=== PATIENT | female | born 1955 | race Caucasian/White ===

== ENCOUNTER 2017-12-16 08:28 | Day surgery (SDC) | payer OTHER ==
[2017-12-15 12:24] VITALS: BMI 41.1
[2017-12-16 08:47] LABS: #Basophils 0.1 thou/uL (0.0-0.2); #Eosinphils 0.4 thou/uL (0.0-0.7); #Monocytes 0.7 thou/uL (0.11-0.59); #Neutrophils 6.3 thou/uL (1.40-6.50); %Basophils 0.6 % (0.0-1.0); %Eosinophils 4.6 % (0.0-10.0); %Lymphocytes 20.8 % (21.0-51.0); %Monocytes 7.3 % (0.0-10.0); %Neutrophils 66.7 % (42.0-75.0); Hemoglobin 11.7 g/dL (12.0-16.0); Mean Corpuscular HGB CONC 32.7 g/dL (32.0-36.0); Mean Corpuscular Hemoglobin 30.3 pg (27.0-31.0); Mean Corpuscular Volume 92.6 fL (78.0-98.0); Mean Platelet Volume 6.9 fL (7.4-10.4); Platelet Count 290 thou/uL (130-400); RBC Distribution Width 13.6 % (11.5-14.5); Red Blood Cell (RBC) Count 3.87 mill/uL (4.20-5.40); White Blood Cell (WBC) Count 9.5 thou/uL (4.8-10.8)
[2017-12-16 08:54] LABS: PTT 39.9 SEC (22.9-36.1); Prothrombin Time 13.5 SEC (12.0-14.7)
[2017-12-16 10:05] VITALS: BP 155/79; TEMP 97.5
[2017-12-16] MEDS ORDERED: Sodium Bicarbonate 2.5 MEQ/5 ML VIAL ONE (10:09)
[2017-12-16] MEDS ORDERED: Midazolam HCl 2 mg/2 ml Vial ONE (10:09)
[2017-12-16] MEDS ORDERED: Fentanyl 100 MCG/2 ML VIAL ONE (10:10)
--- NOTE | 2017-12-16 12:03 | CT ---
CT OF LUMBAR SPINE PERFORMED WITHOUT CONTRAST ENHANCEMENT: Date: 12/16/17 HISTORY: Low back pain. COMPARISON: MRI study of 11/01/17. FINDINGS: Postoperative changes of the spine are noted. Bilateral pedicle screws are seen at L3, L4, and L5. Th ere is a severe scoliotic change to the spine seen convex to the left, centered more in the mid to up per thoracic spine region. There is marked degenerative disc narrowing at L5-S1. There is moderate di sc narrowing at L4-5 with vacuum disc phenomenon. At L3-4, there is marked disc narrowing with very i rregular sclerotic end plates. At L2-3, there is vacuum disc phenomenon and again irregular sclerotic end plates. At L1-2, there is disc narrowing and vacuum disc phenomenon. In comparing to the prior [facility] study, comparison is difficult but suggests that there may be some slight increased disc narrowing at the L3-4 level. Chronic diskitis changes could not be excluded at either L2-3 or L3-4. The severe scoliosis is centered at the L3 vertebral body level. No paravertebral mass is appreciated. No significant periaortic adenopathy. L1-2: Degenerative facet changes are seen. There is mild canal narrowing. L2-3: Canal shows mild to moderate degree of stenosis. There are degenerative facet changes present. L3-4: There is a mild degree of canal narrowing. There is right-sided foraminal stenosis. L4-5: Canal shows some borderline narrowing. Degenerative facet changes. Suggestion of some mild for aminal narrowing. L5-S1: Degenerative facet changes at this level asymmetrically involve the left facet, with some mil d left foraminal narrowing. IMPRESSION: Severe arthritic changes of the spine with postop changes and scoliosis. Findings are as noted above. POS: [facility]
--- NOTE | 2017-12-16 13:34 | CT ---
CT GUIDED BIOPSY/ASPIRATION L2-3 DISC SPACE: Date: 12/16/17 CONSCIOUS SEDATION: 1 mg Versed, IV. 50 mcg Fentanyl, IV. Approximately 30 minutes were spent with the patient for conscious sedation. HISTORY: Abnormal MRI. Inflammation of the L2-3 disc space. FINDINGS: After explaining the procedure and answering all questions, dedicated CT lumbar spine was performed a nd reported separately. Patient was placed on the CT table in the right lateral decubitus position fo r greatest comfort. Limited imaging was performed. Left posterolateral approach was planned. Sterile technique, buffered local anesthesia, conscious sedation, CT guidance, and a left posterolateral appr [facility] were used to carefully advance a 17 gauge trocar needle to the L2-3 disc space. The needle was e ngaged into the disc space as far as possible for access to the area of inflammation on recent MRI. A total of three passes were made with an 18 gauge biopsy device, acquiring a small amount of soft ti ssue and a small amount of bone. Vigorous aspirate was also obtained with a 17 gauge needle, yielding a small amount of disc-type material. Needle was removed. Postprocedure imaging shows no evidence of complication. The tissue was submitted to pathology for both microbiologic analysis and cytology. The patient tolerated the procedure well and was returned to the holding area in good condition for f urther monitoring. IMPRESSION: Technically successful CT guided biopsy/aspirate L2-3 disc space. Pathology is pending. POS: [facility]
== END 2017-12-16 13:10 | disposition home or self-care (01) ==
LOC: CT 08:28
PROVIDERS: ATTEND Orthopaedic Surgery
PROC: 0Q903ZX Drainage of Lumbar Vertebra, Percutaneous Approach, Diagnostic (ICD-10-PCS; principal; 2017-12-16)
PROC: 0QB03ZX Excision of Lumbar Vertebra, Percutaneous Approach, Diagnostic (ICD-10-PCS; principal; 2017-12-16)
DX: M54.5 Low back pain (principal); M41.9 Scoliosis, unspecified
CPT/HCPCS: 36415; 72131; 77012; 85025; 85610; 85730; 87070; 87205; 88173; 88307; J2250; J3010

== ENCOUNTER 2020-06-16 07:43 | Inpatient (IN) | payer MEDICARE, OTHER ==
[2020-06-16] MEDS ORDERED: Norepinephrine 8 MG/0.9% NS 250 ML ONE (07:46)
[2020-06-16] MEDS ORDERED: Cefepime 1 GM VIAL ONE (08:32)
[2020-06-16 08:38] LABS: Anion Gap 33 mmol/L (10-20); BUN (Urea Nitrogen) 60 mg/dL (9.8-20.1); Calc. Creatinine Clearance 0 mL/min (70-130); Carbon Dioxide 30 mmol/L (23-31); Potassium 4.1 mmol/L (3.5-5.1); Sodium 127 mmol/L (136-145)
[2020-06-16 08:45] LABS: Calcium 5.4 mg/dL (7.8-10.44); Chloride 68 mmol/L (98-107); Glucose 1097 mg/dL (80-115)
[2020-06-16] MEDS ORDERED: Calcium Gluc 4.6 MEQ/10 ML (100 MG/ML) ONE ×2 (08:52→11:28)
[2020-06-16] MEDS ORDERED: INSULIN REGULAR IN 0.9 % NACL 100 UNIT/100 ML BAG ONE (09:03)
[2020-06-16] MEDS ORDERED: NS 0.9% w/ 20 MEQ KCL 1,000 ML/1,000 ML BAG IV PRN ×4 (09:15→13:30)
[2020-06-16] MEDS ORDERED: Dextrose 5 %-0.45 % NaCl 1,000 ML IV PRN ×2 (09:15→13:30)
[2020-06-16] MEDS ORDERED: Dextrose 5% in Water 1,000 ML IV PRN ×2 (09:15→13:30)
[2020-06-16] MEDS ORDERED: Sodium Chloride 0.9% 1,000 ML IV PRN ×8 (09:15→13:30)
[2020-06-16] MEDS ORDERED: D5 1/2 NS w/20 mEq KCL 1,000 ML IV PRN ×2 (09:15→13:30)
[2020-06-16] MEDS ORDERED: HUMULIN R 100 UNITS in Sodium Chloride 0.9% 100 ML IVPB SCH ×2 (09:15→13:30)
[2020-06-16] MEDS ORDERED: ADD ELECTROLYTE REPLACEMENT SET TO PROFILE FS SCH ×2 (09:15→13:30)
[2020-06-16] MEDS ORDERED: Insulin Regular 300 UNITS/3 ML VIAL IVP SCH ×2 (09:15→13:30)
[2020-06-16] MEDS ORDERED: Dextrose 50% Abboject 50 ML SYRINGE SLOW IVP PRN ×2 (09:15→13:30)
[2020-06-16 09:18] LABS: SARS-CoV-2 NAA Rapid Test Not Detected (NotDetected)
[2020-06-16 09:31] LABS: HBSAB Concentration Less than 8.00 mIU/mL; Hep B Core Total Ab Non-Reactive (NonReactive); Hep B Core Total Index 0.03 S/CO (0-0.79); Hep B Surf AB Non-Reactive (NonReactive); Hep C IgG Ab Non-Reactive (NonReactive); Hep C Index 0.05 S/CO (0-0.79)
[2020-06-16 09:46] LABS: Actual Bicarbonate (HCO3a) 6.9 mEq/L (22-28); Analyzer IN Cardio ER; Base Excess (BEa) -23.3 mEq/L (-2.0 to +3.0); CO2 Tension 30.5 mmHg (35.0-45.0); Calcium, Ionized (arterial) 1.09 mmol/L (1.12-1.30); Carboxyhemoglobin (COHb) 0.3 gm% (0.0-3.0); Hemoglobin (Hb) 8.4 g/dL (12.0-16.0); O2 Tension (PaO2), arterial 75.1 mmHg (> 80.0); Potassium - ABG Lab 4.98 mmol/L (3.70-5.30)
[2020-06-16] MEDS ORDERED: Vancomycin 1 GM/200 ML BAG ONE (09:48)
[2020-06-16 09:57] LABS: Puncture Site RRA; pH, Arterial 6.97 (7.35-7.45)
[2020-06-16 09:58] LABS: ALV-art Gradient 36.505 mmHg (0-20)
[2020-06-16] MEDS ORDERED: Heparin 10,000 UNITS/ 10 ML VIAL ONE (10:01)
[2020-06-16 10:16] LABS: INR-International Normal Ratio 1.2; Prothrombin Time 15.1 sec (12.0-14.7)
[2020-06-16 10:55] LABS: Base Excess -24.6 mEq/L (-2.0 to +3.0); Calcium, Ionized (venous) 1.01 mmol/L (1.16-1.32); Chloride (VBG) 91 mmol/L (98-106); Hemoglobin (Hb) 8.3 g/dL (11.7-16.1); Potassium (VBG) 4.91 mmol/L (3.70-5.30); Sodium 129.1 mmol/L (133-146)
[2020-06-16 10:56] LABS: Actual Bicarbonate (HCO3v) 6 mEq/L (22-28); pH (venous) 6.92 (7.32-7.43)
[2020-06-16 11:06] LABS: Anion Gap 33 mmol/L (10-20); BUN (Urea Nitrogen) 77 mg/dL (9.8-20.1); Calc. Creatinine Clearance 0 mL/min (70-130); Calcium 7.1 mg/dL (7.8-10.44); Carbon Dioxide 9 mmol/L (23-31); Chloride 92 mmol/L (98-107); Glucose 166 mg/dL (80-115); Potassium 4.9 mmol/L (3.5-5.1); Sodium 129 mmol/L (136-145)
[2020-06-16] MEDS ORDERED: Sodium Bicarb 50 MEQ/50 ML Abboject 8.4% SYRINGE IVP SCH (11:15)
[2020-06-16] MEDS ORDERED: Sodium Bicarbonate 150 MEQ in Dextrose 5% in Water 1,000 ML IV SCH (11:15)
[2020-06-16 11:17] LABS: Hemoglobin A1c 5.5 % (4.0-6.0)
[2020-06-16] MEDS ORDERED: Sodium Bicarb 50 MEQ/50 ML Abboject 8.4% SYRINGE ONE ×3 (11:26→13:07)
[2020-06-16] MEDS ORDERED: Ketamine 50 MG/ML (10ML VIAL) ONE (11:28)
[2020-06-16] MEDS ORDERED: Rocuronium Bromide 10 MG/ML (10ML VIAL) ONE (11:28)
[2020-06-16 11:29] LABS: CK (CPK) 176 U/L (29-168); Magnesium 2.1 mg/dL (1.6-2.6)
[2020-06-16 11:38] LABS: Albumin 3.1 g/dL (3.4-4.8); Protein, Total 5.7 g/dL (5.8-8.1)
[2020-06-16 11:40] LABS: Alkaline Phosphatase 111 U/L (40-110); Bilirubin, Total 0.3 mg/dL (0.2-1.2)
[2020-06-16 11:43] LABS: AST (SGOT) 19 U/L (5-34); Bilirubin, Direct 0.2 mg/dL (0.1-0.3)
[2020-06-16 11:44] LABS: ALT (SGPT) 12 U/L (8-55)
[2020-06-16] MEDS ORDERED: Sodium Chloride 0.65% Nasal 44 ML BOT EA NARE PRN (11:44)
[2020-06-16] MEDS ORDERED: Cepastat Lozenges 1 LOZ PO PRN (11:44)
[2020-06-16] MEDS ORDERED: Acetaminophen 325 MG TAB PO PRN (11:44)
[2020-06-16] MEDS ORDERED: Senokot S 8.6-50 MG TAB PO PRN (11:44)
[2020-06-16] MEDS ORDERED: Ondansetron PF 4 MG/2 ML Vial IVP PRN (11:44)
[2020-06-16] MEDS ORDERED: Bisacodyl 10 MG SUPP PR PRN (11:44)
[2020-06-16] MEDS ORDERED: Norepinephrine 8 MG/0.9% NS 250 ML IVPB SCH (11:44)
[2020-06-16] MEDS ORDERED: Heparin 10,000 UNITS/ 10 ML VIAL SLOW IVP SCH ×2 (11:44→16:00)
[2020-06-16] MEDS ORDERED: Heparin 25,000 units/D5W 500 ML IVPB SCH (11:44)
[2020-06-16] MEDS ORDERED: Fentanyl CADD 100 ML IV SCH (11:45)
[2020-06-16 11:57] LABS: Phosphorus 9.2 mg/dL (2.3-4.7)
[2020-06-16] MEDS ORDERED: Heparin 25,000 units/D5W 500 ML ONE (12:11)
[2020-06-16] MEDS ORDERED: Aspirin 300 MG Suppository ONE (12:12)
[2020-06-16 12:23] LABS: Actual Bicarbonate (HCO3a) 9.4 mEq/L (22-28); Analyzer IN Cardio ER; Base Excess (BEa) -18.6 mEq/L (-2.0 to +3.0); CO2 Tension 30.1 mmHg (35.0-45.0); Carboxyhemoglobin (COHb) 0.3 gm% (0.0-3.0); O2 Tension (PaO2), arterial 72.1 mmHg (> 80.0); Potassium - ABG Lab 4.64 mmol/L (3.70-5.30)
[2020-06-16 12:26] LABS: Hemoglobin 8.2 g/dL (12.0-16.0); Platelet Count 456 thou/uL (130-400)
[2020-06-16] MEDS ORDERED: Lidocaine 1% (PF) 30 ML VIAL ONE (12:27)
[2020-06-16 12:42] LABS: Anion Gap 36 mmol/L (10-20); BUN (Urea Nitrogen) 79 mg/dL (9.8-20.1); Calc. Creatinine Clearance 0 mL/min (70-130); Carbon Dioxide 12 mmol/L (23-31); Chloride 90 mmol/L (98-107); Glucose 167 mg/dL (80-115); Potassium 4.8 mmol/L (3.5-5.1); Sodium 133 mmol/L (136-145)
[2020-06-16 12:47] LABS: ALV-art Gradient 603.275 mmHg (0-20); Puncture Site LRA; pH, Arterial 7.11 (7.35-7.45)
[2020-06-16 12:47] LABS: Troponin I 1.299 ng/mL (< 0.028)
[2020-06-16] MEDS ORDERED: EPINEPHrine 1 MG/10 ML Abboject SYRINGE ONE ×2 (13:07→17:21)
[2020-06-16 13:21] LABS: Actual Bicarbonate (HCO3a) 9.9 mEq/L (22-28); Base Excess (BEa) -18.9 mEq/L (-2.0 to +3.0); CO2 Tension 34.7 mmHg (35.0-45.0); Calcium, Ionized (arterial) 1.14 mmol/L (1.12-1.30); Carboxyhemoglobin (COHb) 0.4 gm% (0.0-3.0); Hemoglobin (Hb) 8.5 g/dL (12.0-16.0); O2 Tension (PaO2), arterial 142.3 mmHg (> 80.0); Potassium - ABG Lab 4.52 mmol/L (3.70-5.30)
[2020-06-16] MEDS ORDERED: Vancomycin 1 GM in Premix Bag 1 BAG IVPB SCH ×2 (13:30→13:45)
[2020-06-16] MEDS: EPINEPHrine 4 MG in Dextrose 5% in Water 250 ML IV SCH ×2 (13:40→17:03)
[2020-06-16] MEDS ORDERED: Vancomycin HCl 750 MG in Sodium Chloride 0.9% 250 ML 250 ML IVPB SCH (13:45)
[2020-06-16] MEDS ORDERED: HOLD VANCOMYCIN FOR LEVEL >20 FS SCH (13:45)
[2020-06-16] MEDS ORDERED: Vancomycin HCl 1.5 GM in Sodium Chloride 0.9% 250 ML 300 ML IVPB SCH (13:45)
[2020-06-16] MEDS ORDERED: Vancomycin HCl 1.25 GM in Sodium Chloride 0.9% 250 ML 250 ML IVPB SCH (13:45)
[2020-06-16] MEDS ORDERED: Vancomycin Sliding Scale 1 EACH FS ONE (13:45)
[2020-06-16 14:27] LABS: Puncture Site Arterial Line; pH, Arterial 7.07 (7.35-7.45)
[2020-06-16 14:28] LABS: ALV-art Gradient 527.325 mmHg (0-20)
[2020-06-16 14:35] LABS: CKMB 12.5 ng/mL (0-6.6)
[2020-06-16 14:58] LABS: Troponin I 3.172 ng/mL (< 0.028)
[2020-06-16 15:30] VITALS: BMI 45.8
[2020-06-16] MEDS ORDERED: Insulin Regular 300 UNITS/3 ML VIAL SC PRN (16:00)
[2020-06-16] MEDS ORDERED: Heparin 25,000 units/D5W 500 ML IV SCH (16:00)
[2020-06-16 17:02] LABS: Hep B Surf Ag Reflx Confirmation S/CO (NonReactive)
[2020-06-16 17:03] LABS: HBSAg Index 1.55 S/CO (0-0.99)
[2020-06-16] MEDS ORDERED: EPINEPHrine 1 MG/ML AMP ONE (17:20)
[2020-06-17] MEDS ORDERED: Meropenem 500 MG in Sodium Chloride 0.9% 100 ML IVPB SCH (09:00)
[2020-06-17] MEDS ORDERED: Pantoprazole 40 MG VIAL IVP SCH (09:00)
[2020-06-18 03:12] LABS: Hep B Surface AG-Rflx Sendout Negative (Negative)
== END 2020-06-16 18:33 | disposition expired | DRG 208 ==
LOC: ERS 07:43 → CCU 11:44
PROVIDERS: ADMIT Internal Medicine; ATTEND Internal Medicine
PROC: 0BH17EZ Insertion of Endotracheal Airway into Trachea, Via Natural or Artificial Opening (ICD-10-PCS; principal; 2020-06-16)
PROC: 5A12012 Performance of Cardiac Output, Single, Manual (ICD-10-PCS; 2020-06-16)
PROC: 3E033XZ Introduction of Vasopressor into Peripheral Vein, Percutaneous Approach (ICD-10-PCS; 2020-06-16)
PROC: 04HY32Z Insertion of Monitoring Device into Lower Artery, Percutaneous Approach (ICD-10-PCS; 2020-06-16)
PROC: 5A1935Z Respiratory Ventilation, Less than 24 Consecutive Hours (ICD-10-PCS; 2020-06-16)
PROC: 0D9670Z Drainage of Stomach with Drainage Device, Via Natural or Artificial Opening (ICD-10-PCS; 2020-06-16)
PROC: 06HY33Z Insertion of Infusion Device into Lower Vein, Percutaneous Approach (ICD-10-PCS; 2020-06-16)
DX: I26.99 Other pulmonary embolism without acute cor pulmonale (principal); G93.41 Metabolic encephalopathy; J96.01 Acute respiratory failure with hypoxia; I21.4 Non-ST elevation (NSTEMI) myocardial infarction; N18.6 End stage renal disease; E87.1 Hypo-osmolality and hyponatremia; Z68.42 Body mass index [BMI] 45.0-49.9, adult; E87.2 Acidosis; I13.2 Hypertensive heart and chronic kidney disease with heart failure and with stage 5 chronic kidney disease, or end stage renal disease; Z66 Do not resuscitate; E87.5 Hyperkalemia; E11.22 Type 2 diabetes mellitus with diabetic chronic kidney disease; M19.90 Unspecified osteoarthritis, unspecified site; G89.29 Other chronic pain; E87.70 Fluid overload, unspecified; E11.65 Type 2 diabetes mellitus with hyperglycemia; T68.XXXA Hypothermia, initial encounter; D63.1 Anemia in chronic kidney disease; E78.5 Hyperlipidemia, unspecified; F41.9 Anxiety disorder, unspecified; E11.40 Type 2 diabetes mellitus with diabetic neuropathy, unspecified; F32.9 Major depressive disorder, single episode, unspecified; Z20.822 Contact with and (suspected) exposure to COVID-19; I45.10 Unspecified right bundle-branch block; M10.9 Gout, unspecified; G47.33 Obstructive sleep apnea (adult) (pediatric); E83.51 Hypocalcemia; E66.01 Morbid (severe) obesity due to excess calories; E03.9 Hypothyroidism, unspecified; Z88.0 Allergy status to penicillin; Z88.2 Allergy status to sulfonamides; Z79.82 Long term (current) use of aspirin; Z79.4 Long term (current) use of insulin; Z79.899 Other long term (current) drug therapy; Z87.891 Personal history of nicotine dependence; Z99.2 Dependence on renal dialysis; I50.811 Acute right heart failure; I46.8 Cardiac arrest due to other underlying condition; R57.0 Cardiogenic shock; I27.29 Other secondary pulmonary hypertension; I07.1 Rheumatic tricuspid insufficiency; Z91.15 Patient's noncompliance with renal dialysis
CPT/HCPCS: 0240U; 31500; 36416; 36556; 36600; 70450; 71045; 80048; 80076; 82010; 82140; 82533; 82550; 82553; 82805; 83036; 83735; 83930; 84100; 84443; 84484; 85014; 85018; 85049; 85610; 85730; 86704; 86706; 86803; 86850; 86900; 86901; 87040; 87077; 87186; 87340; 92950; 93005; 93306; 94002; 94760; 96365; 96366; 96374; 96375; 96376; 99292; J0171; J0692; J1644; J2001; J2997; J3010; J3370; J7070